=== PATIENT | female | born 1950 | race Asian ===

== ENCOUNTER 2016-08-27 12:32 | Emergency (ER) | payer OTHER ==
[~2016-08-27] VITALS: Ht 160 cm; Wt 54.4 kg
[~2016-08-27 12:32] MED LIST: AHCC; AMOX250S23 PO; ASPI-515 PO; HYDR1TAB12 PO; METO25TA35 PO; ONDA4TAB10 PO; OSEL75CA PO; POLY17PO5 PO; TIZA2CAP PO; UBID10CA5 PO; [UNRECOGNIZED DRUG - CODE] PO; [UNRECOGNIZED DRUG - OTHER]; [UNRECOGNIZED DRUG - REMARK]
[2016-08-27] MEDS ORDERED: SODIUM CHLORIDE 0.9% 1,000 ML IV ONE (13:45)
[2016-08-27] MEDS ORDERED: ASPIRIN 81 MG TABLET CHEW PO ONE (14:00)
[2016-08-27] MEDS ORDERED: DIAZEPAM 5 MG/ML, 2ML IVPush ONE (14:00)
[2016-08-27] MEDS ORDERED: MORPHINE SULFATE 4 MG/ML, 1ML IVPush PRN (14:00)
[2016-08-27] MEDS ORDERED: ONDANSETRON 2MG/ML, 2ML IVPush ONE (14:00)
[2016-08-27 14:18] LABS: BLOOD UREA NITROGEN 19 mg/dL (7-18)
[2016-08-27 14:25] LABS: IS PT STATUS REG ER OR PRE ER? YES
[2016-08-27] MEDS ORDERED: MORPHINE SULFATE 4 MG/ML, 1ML ONE (14:29)
[2016-08-27] MEDS ORDERED: ASPIRIN 81 MG TABLET CHEW ONE (14:30)
[2016-08-27] MEDS ORDERED: ONDANSETRON 2MG/ML, 2ML ONE (14:30)
[2016-08-27 17:01] VITALS: BP 144/83
== END 2016-08-27 17:04 | disposition home or self-care (01) ==
LOC: ED 16:58
DX: M54.12 Radiculopathy, cervical region (principal); E78.00 Pure hypercholesterolemia, unspecified; Z85.43 Personal history of malignant neoplasm of ovary
CPT/HCPCS: 36415; 71010; 72141; 72146; 73080; 80048; 82040; 84484; 85025; 85379; 93005; 96361; 96374; 96375; 99285; J2405; J3360; J7030

== ENCOUNTER 2018-05-12 10:15 | Outpatient (CLI) | payer MEDICARE ==
[~2018-05-12 10:15] MED LIST changes: -HYDR1TAB12 PO; +HYDR1TAB13 PO
== END 2018-05-12 23:59 | disposition home or self-care (01) ==
LOC: CVU 10:15
PROVIDERS: ATTEND Internal Medicine Cardiovascular Disease
DX: I08.0 Rheumatic disorders of both mitral and aortic valves (principal); I48.0 Paroxysmal atrial fibrillation; Z85.43 Personal history of malignant neoplasm of ovary
CPT/HCPCS: 93306

== ENCOUNTER → 2020-01-17 | Outpatient (CLI) | payer MEDICARE ==
[~2020-01-17] MED LIST changes: -OSEL75CA PO; +OSEL75CA26 PO
[2020-01-17 09:24] LABS: INTERNATIONAL NORMALIZED RATIO 0.97 (0.93-1.1); PROTHROMBIN TIME 10.3 Seconds (9.6-11.5)
[2020-01-17 09:25] LABS: ANION GAP 5 mmol/L (5-15); CHLORIDE 109 mmol/L (98-107); CREATININE 0.78 mg/dL (0.55-1.02)
[2020-01-17 09:38] LABS: MICROSCOPIC INDICATED
[2020-01-17 10:01] LABS: BASOPHILS % (AUTO) 0 % (0-1); EOSINOPHILS % (AUTO) 1 % (1-7); LYMPHOCYTES % (AUTO) 26 % (22-44); MEAN CORPUSCULAR HEMOGLOBIN 30.1 pg (27.0-34.8); MEAN PLATELET VOLUME 8.6 fL (7.4-10.4); MONOCYTES % (AUTO) 7 % (2-9); NEUTROPHILS % (AUTO) 67 % (42-75); PLATELET COUNT 224 x10^3/uL (130-400); RED BLOOD COUNT 4.34 x10^6/uL (3.82-5.3); RED CELL DISTRIBUTION WIDTH 14.3 % (9.6-15.2)
[2020-01-17 10:03] LABS: MD NO
== END | disposition home or self-care (01) ==
LOC: STAR 07:48
PROVIDERS: ATTEND Neurological Surgery
DX: Z01.818 Encounter for other preprocedural examination (principal); M50.30 Other cervical disc degeneration, unspecified cervical region; R94.31 Abnormal electrocardiogram [ECG] [EKG]
CPT/HCPCS: 36415; 71046; 80048; 81001; 85025; 85610; 85730; 93005

== ENCOUNTER → 2020-01-19 | Outpatient (CLI) | payer MEDICARE ==
[~2020-01-19] MED LIST changes: +CALCIUM PO; +DOCU-131 PO; +HYDR-3237 PO; +METH500T7 PO; +ONDA4TAB7 PO
== END | disposition home or self-care (01) ==
LOC: STAR 12:11
PROVIDERS: ATTEND Anesthesiology
DX: Z20.828 Contact with and (suspected) exposure to other viral communicable diseases (principal)
CPT/HCPCS: 87635

== ENCOUNTER 2020-01-24 05:29 | Day surgery (SDC) | payer MEDICARE ==
[~2020-01-24] VITALS: Ht 160 cm; Wt 53.2 kg
[~2020-01-24 05:29] MED LIST changes: -CALCIUM PO; -DOCU-131 PO; -HYDR-3237 PO; -METH500T7 PO; -ONDA4TAB7 PO
[2020-01-24] MEDS ORDERED: LACTATED RINGERS 1,000 ML IV SCH (06:00)
[2020-01-24] MEDS ORDERED: CHLORHEXIDINE 15 ML UDC MM ONE (06:00)
[2020-01-24] MEDS ORDERED: CALCIUM PO (06:07)
[2020-01-24] MEDS ORDERED: METO25TA35 PO (06:07)
[2020-01-24 06:13] VITALS: BP 147/93
[2020-01-24] MEDS ORDERED: MIDAZOLAM 1 MG/ML, 2ML ONE (06:22)
[2020-01-24] MEDS ORDERED: FENTANYL PF 100 MCG/2ML ONE ×2 (06:22→09:16)
[2020-01-24] MEDS ORDERED: PROPOFOL 50 ML ONE ×2 (06:27→08:03)
[2020-01-24] MEDS ORDERED: EPINEPHRINE 1 MG/ML, 1ML ONE (06:33)
[2020-01-24] MEDS ORDERED: BACITRACIN 50,000 UNIT ONE (06:33)
[2020-01-24] MEDS ORDERED: BUPIVACAINE/PF 0.5% ONE (06:33)
[2020-01-24] MEDS ORDERED: SCOPOLAMINE 1MG PATCH TD ONE (06:38)
[2020-01-24] MEDS ORDERED: MEPERIDINE/PF 25MG/0.5ML IVPush PRN (07:00)
[2020-01-24] MEDS ORDERED: HYDROmorphone 1 MG/ML, 1ML INJ IVPush PRN (07:00)
[2020-01-24] MEDS ORDERED: OXYcodone 5 MG/5 ML ORAL.SOL UDC PO PRN (07:00)
[2020-01-24] MEDS ORDERED: HYDROcodone/APAP 7.5-325MG/15ML UDC PO PRN (07:00)
[2020-01-24] MEDS ORDERED: PROMETHAZINE 25 MG/ML, 1ML IVPush PRN (07:00)
[2020-01-24] MEDS ORDERED: METHOCARBAMOL 1,000 MG in DEXTROSE 5% 100 ML IV PRN (07:00)
[2020-01-24] MEDS ORDERED: SCOPOLAMINE 1MG PATCH TD SCH (07:00)
[2020-01-24] MEDS ORDERED: HYDR-3237 PO (07:41)
[2020-01-24] MEDS ORDERED: METH500T7 PO (07:41)
[2020-01-24] MEDS ORDERED: DOCU-131 PO (07:41)
[2020-01-24] MEDS ORDERED: ONDA4TAB7 PO (07:41)
[2020-01-24] MEDS: FENTANYL PF 100 MCG/2ML IV PRN ×2 (09:19→09:35)
[2020-01-24] MEDS ORDERED: CEFAZOLIN 1,000 MG ONE (10:59)
[2020-01-24] MEDS ORDERED: ROCURONIUM 10MG/ML,5ML ONE (10:59)
[2020-01-24] MEDS ORDERED: DEXAMETHASONE 4 MG/ML, 1ML ONE (10:59)
[2020-01-24] MEDS ORDERED: PROPOFOL 10 MG/ML, 20ML ONE (10:59)
[2020-01-24] MEDS ORDERED: ONDANSETRON 2MG/ML, 2ML ONE (10:59)
[2020-01-24] MEDS ORDERED: PHENYLEPHRINE 10 MG/ML ONE (10:59)
[2020-01-24] MEDS ORDERED: SUCCINYLCHOLINE 20 MG/ML, 10ML ONE (10:59)
== END 2020-01-24 16:00 | disposition home or self-care (01) ==
LOC: OUT 05:29
PROVIDERS: ATTEND Neurological Surgery
DX: M50.123 Cervical disc disorder at C6-C7 level with radiculopathy (principal); M25.78 Osteophyte, vertebrae; I48.0 Paroxysmal atrial fibrillation; Z79.899 Other long term (current) drug therapy; Z85.43 Personal history of malignant neoplasm of ovary; Z88.8 Allergy status to other drugs, medicaments and biological substances; Z80.41 Family history of malignant neoplasm of ovary
CPT/HCPCS: 20936; 22551; 22845; 22853; 72040; 95938; 95941; C1713; C1760; C1776; J0171; J0330; J0690; J1100; J2250; J2370; J2405; J2704; J2800; J3010; J7120